=== PATIENT | male | born 1970 | race African-American/Black ===

== ENCOUNTER 2017-12-28 23:58 | Emergency (ER) | payer OTHER ==
[~2017-12-28] VITALS: Ht 172.7 cm; Wt 99.0 kg
[2017-12-29 00:19] VITALS: BP 151/95
== END 2017-12-29 00:20 ==
LOC: EME 23:58
DX: F10.129 Alcohol abuse with intoxication, unspecified (principal)
CPT/HCPCS: 99281; 99283